=== PATIENT | female | born 1980 | race Caucasian/White ===

== ENCOUNTER → 2020-08-31 | Outpatient (CLI) | payer OTHER ==
[~2020-08-31] MED LIST: IBUPROFEN600 MG PO
== END ==
LOC: ECHO 12:23
DX: R06.09 Other forms of dyspnea (principal)
CPT/HCPCS: ECHO; 93306

== ENCOUNTER 2020-09-28 12:40 | Emergency (ER) | payer OTHER ==
[2020-09-28] MEDS ORDERED: IBUPROFEN600 MG PO (16:35)
== END 2020-09-28 16:41 | disposition home or self-care (01) ==
LOC: ER1 12:40
DX: R51.9 Headache, unspecified (principal); E11.9 Type 2 diabetes mellitus without complications; I10 Essential (primary) hypertension; Z90.49 Acquired absence of other specified parts of digestive tract; Z87.442 Personal history of urinary calculi
CPT/HCPCS: 70450; 99284

== ENCOUNTER → 2021-02-16 | Outpatient (CLI) | payer OTHER | LOC: MAMO 08:09 | DX: Z12.31 Encounter for screening mammogram for malignant neoplasm of breast (principal) | CPT/HCPCS: 77063; 77067 ==

== ENCOUNTER → 2021-02-23 | Outpatient (CLI) | payer OTHER | LOC: US 13:26 | DX: R92.8 Other abnormal and inconclusive findings on diagnostic imaging of breast (principal) | CPT/HCPCS: 76641-LT; 76641-RT ==

== ENCOUNTER → 2021-09-06 | Outpatient (CLI) | payer OTHER | LOC: MAMO 09-03 11:00 | DX: R92.8 Other abnormal and inconclusive findings on diagnostic imaging of breast (principal) | CPT/HCPCS: 77066; G0279 ==

== ENCOUNTER → 2022-03-10 | Outpatient (CLI) | payer OTHER | LOC: MAMO 10:00 | DX: R92.8 Other abnormal and inconclusive findings on diagnostic imaging of breast (principal) | CPT/HCPCS: 77066; G0279 ==